=== PATIENT | female | born 2000 ===

== ENCOUNTER 2024-04-29 18:14 | Inpatient (IN) | payer MEDICAID, SELFPAY ==
[2024-04-29] VITALS (40 sets, daily range): BP systolic 102–122; BP diastolic 52–76; PULSE 0–132; TEMP 36.7–36.9
--- NOTE | 2024-04-29 20:04 | W.PM.OBHPL1 ---
Date of service: 04/29/24 Time of Service: 20:04 Assessment and Plan Assessment and plan (1) Post-dates : Status: Acute Assessment and plan: Induction planned - see R/B discussion above. Labs pending - want to confirm no maternal anemia given hx maternal tachy past 6-8 weeks. No known thyroid disease - will add TSH to labs tachy/high baseline with Cat 1 strip. Cooks catherter placed, Bishops score favorable, ctx pattern present. Will augment as appropriate when catheter falls out. OB-HPI Labor/Delivery History of Present Illness Reason for Visit: IOL Chief Complaint: Scheduled Induction of Labor Indication for Induction: Post Date. Comments: 23 yo @ 41 02/24 for scheduled induction due to post dates. Early and reg PN care GBS neg No HTN, GDM, anemia, PN issues TWG ~50# Over past few days - steady FMVT, no ROM, edema, MARCANO or CTX. FHX - straightforward rapid labors Plans pumping/exclusive breast milk Brendan, partner, present and supportive Conversations in office over the past 1-2 weeks re induction indications, options, risks/benefits. Specifically discussed Cooks catheter, miso, pitocin and risks of hyperstim, HR abnormalities, c/section among others. Similar discussion reviewed again with both Brendan and Rachel on admission She had good sleep last noc, ate well today and had usual activity - approp worried re induction. Fetus quite active today, she had coffee earlier - not a daily intake. Last h/h . No HX PPHem or SD - no particular risk factors save TWG 50# for SD History of Present Assessment: History Reviewed & Current Narrative: RH pos, rubella immune, TDaP booster done 02/29/2024 Informed Consent Informed Consent: Augmentation of Labor and Induction of Labor PFSH All Active Problems (Updated 04/29/24 @ 20:49 by Elie Upton) Post-dates (Acute) (Acute) Social History Smoking/Tobacco Use Status: Never Smoking risk assessment performed?: Yes Alcohol Intake: former Drug use: Never Substance use type: does not use Housing: apartment Do you feel safe at home: Yes Do you feel safe in your relationship?: Yes History History 1 Para 0 Hx # Term Pregnancies Multiple births Hx # Pregnancies Ectopic pregnancies AB induced Hx Number of Living Children AB spontaneous Exam Physical Exam Vital signs: Temp Pulse BP 36.9 C 98 H 121/76 04/29/24 19:41 04/29/24 19:41 04/29/24 19:41 Narrative: Bright, alert, comfortable abd - soft, non-tender, FH 38 cm no edema distally CVS - reg, no murmur Lungs - clear BP 121/76 maternal pulse ~100 in office = baseline Constitutional Constitutional: no acute distress Detailed Labor and Delivery Exam Dilation: 1 Effacement (%): 60 station: 0 Position: OT Cervix position: anterior Consistency: soft Curry Score: Cervical Points Exam 0 1 2 3 Dilation Closed 1-2cm 3-4 cm 5-6cm Effacement 0-30% 40-50% 60-70% 80% Consistency Firm Medium Soft Station -3 -2 -1,0 +1,+2 Position Posterior Mid Anterior CURRY Score(Cervical Ripeness Score): 9 Amniotic Membrane Status: Intact Monitor Mode: External Contraction Frequency(min): q 3 Contraction Duration(sec): 45 Contraction Intensity: Mild/Moderate Comments: reg ctx - palpating mild - maternal crampy Fetus A Heart Rate Baseline: 160 Monitor Accelerations: 15 X 15 Monitor Decelerations: Late Variability: Moderate (6-25 BPM) Presentation: Vertex Categories: Category I Est. Weight: 3600 kg Assessment Note: two self limiting decels from baseline 160 to 130's between ctx - overall cat 1 tracing Results Results Group Beta Strep: Negative Blood Type: O+ Rubella Status: Immune Varicella Immunity: Not Tested Risk Assessment Risks Reviewed Risks Reviewed Upon Admission: Yes
[2024-04-29] MEDS: Lactated Ringers 1,000 ML 999 ML IV ×2 (21:02→22:50)
[2024-04-29 21:08] LABS: HCT 35.3 % (36.0-46.0); HGB 11.5 g/dL (11.2-15.7); MCH 27.4 pg (27.0-33.0); MCHC 32.6 % (32.0-36.0); MCV 84 fL (80-95); MPV 11.2 fL (8.0-11.0); Platelet Count 302 10^3/uL (130-400); RDW 13.8 % (11.7-14.6); RDW-SD 42.3 fL; WBC 14.36 10^3/uL (4.4-10.8)
[2024-04-29] MEDS: Ondansetron O.D.T. 4 MG TABEF PO (21:14)
[2024-04-29 21:32] LABS: TSH (W/Ref FT4) 1.04 uIU/mL (0.36-3.74)
--- NOTE | 2024-04-29 22:01 | W.PM.OBNL1 ---
Date of service: 04/29/24 Time of Service: 22:01 Informed Consent Informed Consent: Augmentation of Labor and Induction of Labor Objective Abnormal lab results 04/29/24 Range/Units 20:52 WBC 14.36 H (4.4-10.8) 10^3/uL Hct 35.3 L (36.0-46.0) % MPV 11.2 H (8.0-11.0) fL Temp Pulse BP 36.9 C 89 102/52 L 04/29/24 19:41 04/29/24 21:59 04/29/24 21:00 Laboratory Results WBC 14.36 10^3/uL (4.4-10.8) H 04/29/24 20:52 RBC 4.20 10^6/uL (3.93-5.22) 04/29/24 20:52 Hgb 11.5 g/dL (11.2-15.7) 04/29/24 20:52 Hct 35.3 % (36.0-46.0) L 04/29/24 20:52 MCV 84 fL (80-95) 04/29/24 20:52 MCH 27.4 pg (27.0-33.0) 04/29/24 20:52 MCHC 32.6 % (32.0-36.0) 04/29/24 20:52 RDW 13.8 % (11.7-14.6) 04/29/24 20:52 Plt Count 302 10^3/uL (130-400) 04/29/24 20:52 MPV 11.2 fL (8.0-11.0) H 04/29/24 20:52 TSH 1.04 uIU/mL (0.36-3.74) 04/29/24 20:52 ABO/Rh O Positive 04/29/24 20:52 Antibody Screen NEGATIVE 04/29/24 20:52 Subjective Interval history since last seen: Comfortable in bed, taking sips fluids, IV bolus infused, fetus active. Baseline 155 with isolated decels to 130 - one to 90 - resolved with maternal position change Maternal nausea past 1-2 hrs - Zofran given. No MARCANO, dizzy, vag d/c. O: maternal pulse in 90's BP: 120/70 no edema non-tender uterus - mild/mod ctx q 3-4 min labs: 11.5/35 TSH 1.04 UDS pending CCUA pending A: Maternal and tachy improved with IV fluid. Just now string of decel - recurrent to 90's - while Rachel up to toilet. P: will recheck cvx and seee if position changes resolve/improve decels. S. Genereaux Results Hemoglobin/Hematocrit: Hgb 11.5 g/dL (11.2-15.7) 04/29/24 20:52 Hct 35.3 % (36.0-46.0) L 04/29/24 20:52 Abnormal Lab Findings: Abnormal Labs 04/29/24 20:52 WBC 14.36 H Hct 35.3 L MPV 11.2 H
--- NOTE | 2024-04-29 22:52 | W.PM.OBNL1 ---
Date of service: 04/29/24 Time of Service: 22:52 Informed Consent Informed Consent: Augmentation of Labor and Induction of Labor Objective Abnormal lab results 04/29/24 Range/Units 20:52 WBC 14.36 H (4.4-10.8) 10^3/uL Hct 35.3 L (36.0-46.0) % MPV 11.2 H (8.0-11.0) fL Temp Pulse BP 36.9 C 84 121/58 L 04/29/24 22:35 04/29/24 22:50 04/29/24 22:35 Laboratory Results WBC 14.36 10^3/uL (4.4-10.8) H 04/29/24 20:52 RBC 4.20 10^6/uL (3.93-5.22) 04/29/24 20:52 Hgb 11.5 g/dL (11.2-15.7) 04/29/24 20:52 Hct 35.3 % (36.0-46.0) L 04/29/24 20:52 MCV 84 fL (80-95) 04/29/24 20:52 MCH 27.4 pg (27.0-33.0) 04/29/24 20:52 MCHC 32.6 % (32.0-36.0) 04/29/24 20:52 RDW 13.8 % (11.7-14.6) 04/29/24 20:52 Plt Count 302 10^3/uL (130-400) 04/29/24 20:52 MPV 11.2 fL (8.0-11.0) H 04/29/24 20:52 TSH 1.04 uIU/mL (0.36-3.74) 04/29/24 20:52 ABO/Rh O Positive 04/29/24 20:52 Antibody Screen NEGATIVE 04/29/24 20:52 Subjective Interval history since last seen: Feeling ctx - more intense and fundal mod q 3 - some q 2. cvx - 2 cm/60%/0 station/soft/ant - Cook catheter in place No bloody show, good fmvt maternal po intake ok - no nausea IV fluids running at 125 O: BP 120/70 - was lower earlier, pulse stable ~90 FHT - mod variability, stretch of no decels - variable character - to 120 from 150 A: Maternal and wellbeing Given occas decels and steady ctx - pharmacologic aug not indicated possible to AROM pending progress Position changes seem to be most effective - currently on LLat with peanut. P: expect cont current course Results Hemoglobin/Hematocrit: Hgb 11.5 g/dL (11.2-15.7) 04/29/24 20:52 Hct 35.3 % (36.0-46.0) L 04/29/24 20:52 Abnormal Lab Findings: Abnormal Labs 04/29/24 20:52 WBC 14.36 H Hct 35.3 L MPV 11.2 H
[2024-04-29 23:50] LABS: *AMPHETAMINES SCREEN URINE Negative (Negative); *BARBITURATES SCREEN URINE Negative (Negative); *BENZODIAZEPINES SCREEN URINE Negative (Negative); Cannabinoids THC Negative (Negative); Cocaine Screen,Urine Negative (Negative); METHADONE URINE SCREEN Negative (Negative); OPIATES URINE SCREEN Negative (Negative); Tricyclic Antidepressants Negative (Negative)
--- NOTE | 2024-04-29 23:50 | W.PM.OBNL1 ---
Date of service: 04/29/24 Time of Service: 23:50 Informed Consent Informed Consent: Augmentation of Labor and Induction of Labor Objective Abnormal lab results 04/29/24 Range/Units 20:52 WBC 14.36 H (4.4-10.8) 10^3/uL Hct 35.3 L (36.0-46.0) % MPV 11.2 H (8.0-11.0) fL Temp Pulse BP 36.9 C 77 121/58 L 04/29/24 22:35 04/29/24 23:46 04/29/24 22:35 Laboratory Results WBC 14.36 10^3/uL (4.4-10.8) H 04/29/24 20:52 RBC 4.20 10^6/uL (3.93-5.22) 04/29/24 20:52 Hgb 11.5 g/dL (11.2-15.7) 04/29/24 20:52 Hct 35.3 % (36.0-46.0) L 04/29/24 20:52 MCV 84 fL (80-95) 04/29/24 20:52 MCH 27.4 pg (27.0-33.0) 04/29/24 20:52 MCHC 32.6 % (32.0-36.0) 04/29/24 20:52 RDW 13.8 % (11.7-14.6) 04/29/24 20:52 Plt Count 302 10^3/uL (130-400) 04/29/24 20:52 MPV 11.2 fL (8.0-11.0) H 04/29/24 20:52 TSH 1.04 uIU/mL (0.36-3.74) 04/29/24 20:52 ABO/Rh O Positive 04/29/24 20:52 Antibody Screen NEGATIVE 04/29/24 20:52 Subjective Interval history since last seen: more consistent decels - early appearing - from 160's to 90 - good rebound and mod variability cvx - 2-3 cm/0 station/60%/vtx SROM - clear no bloody show mat BP 120/60 - pulse ~90 Ctx = mod q 3 A: Despite IV fluids, O2, position changes decels persist Nuchal cord possible Given she is far from - will try amnio and scalp clip if little improvement - section may be best course Nicole aware and fully involved with care decisons and planning Dr. Spaulding aware - discussed strip and plans for amnio infusion trial Lola Upton Results Hemoglobin/Hematocrit: Hgb 11.5 g/dL (11.2-15.7) 04/29/24 20:52 Hct 35.3 % (36.0-46.0) L 04/29/24 20:52 Abnormal Lab Findings: Abnormal Labs 04/29/24 20:52 WBC 14.36 H Hct 35.3 L MPV 11.2 H
[2024-04-30] VITALS (28 sets, daily range): BP systolic 108–134; BP diastolic 59–82; PULSE 72–104; RESP 15–24; TEMP 36.6–36.9; TEMPC 35.9; O2SAT 95–97; BMI 39.4
--- NOTE | 2024-04-30 01:18 | W.PM.OBNL1 ---
Date of service: 04/30/24 Time of Service: 01:19 Informed Consent Informed Consent: Augmentation of Labor and Induction of Labor Objective Abnormal lab results 04/29/24 Range/Units 20:52 WBC 14.36 H (4.4-10.8) 10^3/uL Hct 35.3 L (36.0-46.0) % MPV 11.2 H (8.0-11.0) fL Temp Pulse BP 36.9 C 72 122/58 L 04/30/24 00:26 04/30/24 00:26 04/29/24 23:57 Laboratory Results WBC 14.36 10^3/uL (4.4-10.8) H 04/29/24 20:52 RBC 4.20 10^6/uL (3.93-5.22) 04/29/24 20:52 Hgb 11.5 g/dL (11.2-15.7) 04/29/24 20:52 Hct 35.3 % (36.0-46.0) L 04/29/24 20:52 MCV 84 fL (80-95) 04/29/24 20:52 MCH 27.4 pg (27.0-33.0) 04/29/24 20:52 MCHC 32.6 % (32.0-36.0) 04/29/24 20:52 RDW 13.8 % (11.7-14.6) 04/29/24 20:52 Plt Count 302 10^3/uL (130-400) 04/29/24 20:52 MPV 11.2 fL (8.0-11.0) H 04/29/24 20:52 TSH 1.04 uIU/mL (0.36-3.74) 04/29/24 20:52 Urine Opiates Screen Negative (Negative) 04/29/24 22:30 Urine Methadone Screen Negative (Negative) 04/29/24 22:30 Ur Barbiturates Screen Negative (Negative) 04/29/24 22:30 Ur Tricyclics Screen Negative (Negative) 04/29/24 22:30 Ur Amphetamines Screen Negative (Negative) 04/29/24 22:30 U Benzodiazepines Scrn Negative (Negative) 04/29/24 22:30 Urine Cocaine Screen Negative (Negative) 04/29/24 22:30 Ur THC Screen Negative (Negative) 04/29/24 22:30 ABO/Rh O Positive 04/29/24 20:52 Antibody Screen NEGATIVE 04/29/24 20:52 Subjective Interval history since last seen: Despite amnioinfusion, decels persist - appear to be earlies Some light mec. Ctx Q2 FHT - variability mod, at times tachy with consistent decels Cat 2 strip A: Given remote from delivery proceeding to section = best option Nicole fully apart of dahlia making re options of continued labor vs section. I counselled them re anes, surgical procedure and specific risks including bleeding, infection, damage to internal organs. They freely signed consent form. P To OR routine pre-op abx, fluids, bicitra S. Genereaux Results Hemoglobin/Hematocrit: Hgb 11.5 g/dL (11.2-15.7) 04/29/24 20:52 Hct 35.3 % (36.0-46.0) L 04/29/24 20:52 Abnormal Lab Findings: Abnormal Labs 04/29/24 20:52 WBC 14.36 H Hct 35.3 L MPV 11.2 H
--- NOTE | 2024-04-30 01:22 | W.PM.OBNL1 ---
Date of service: 04/30/24 Time of Service: 01:22 Informed Consent Informed Consent: Augmentation of Labor and Induction of Labor Pelvic Exam Dilation: 2 Fetus A Heart Rate Baseline: 155 Variability: Moderate (6-25 BPM) Categories: Category II Accelerations: 15 X 15 Decelerations: Early and Variable Recurrence: Recurrent Assessment and Plan Assessment and plan (1) Category II heart rate tracing during labor and delivery: Status: Acute Assessment and plan: The situation was discussed with Dr. Upton, the patient and myself. She is agreeable to proceed with C section. Consent signed and questions answered. The team was notified. Objective Abnormal lab results 04/29/24 Range/Units 20:52 WBC 14.36 H (4.4-10.8) 10^3/uL Hct 35.3 L (36.0-46.0) % MPV 11.2 H (8.0-11.0) fL Temp Pulse BP 98.5 F 90 125/63 04/30/24 00:26 04/30/24 01:20 04/30/24 01:20 Laboratory Results WBC 14.36 10^3/uL (4.4-10.8) H 04/29/24 20:52 RBC 4.20 10^6/uL (3.93-5.22) 04/29/24 20:52 Hgb 11.5 g/dL (11.2-15.7) 04/29/24 20:52 Hct 35.3 % (36.0-46.0) L 04/29/24 20:52 MCV 84 fL (80-95) 04/29/24 20:52 MCH 27.4 pg (27.0-33.0) 04/29/24 20:52 MCHC 32.6 % (32.0-36.0) 04/29/24 20:52 RDW 13.8 % (11.7-14.6) 04/29/24 20:52 Plt Count 302 10^3/uL (130-400) 04/29/24 20:52 MPV 11.2 fL (8.0-11.0) H 04/29/24 20:52 TSH 1.04 uIU/mL (0.36-3.74) 04/29/24 20:52 Urine Opiates Screen Negative (Negative) 04/29/24 22:30 Urine Methadone Screen Negative (Negative) 04/29/24 22:30 Ur Barbiturates Screen Negative (Negative) 04/29/24 22:30 Ur Tricyclics Screen Negative (Negative) 04/29/24 22:30 Ur Amphetamines Screen Negative (Negative) 04/29/24 22:30 U Benzodiazepines Scrn Negative (Negative) 04/29/24 22:30 Urine Cocaine Screen Negative (Negative) 04/29/24 22:30 Ur THC Screen Negative (Negative) 04/29/24 22:30 ABO/Rh O Positive 04/29/24 20:52 Antibody Screen NEGATIVE 04/29/24 20:52 Vital Signs Reviewed: Yes Subjective Interval history since last seen: Pt was admitted by [facility] for induction of labor at 41.3wks. She had a cooks catheter placed for cervical ripening and began prince mildly after that. The catheter was removed around 23:30 and she started to develop recurrent variable/early decels. She was only 2cm. An amnio infustion was started, IUPC and FSE placed. I was asked to evaluate patient and discuss C Section due to persistent category 2 FHT remote from delivery. Results Hemoglobin/Hematocrit: Hgb 11.5 g/dL (11.2-15.7) 04/29/24 20:52 Hct 35.3 % (36.0-46.0) L 04/29/24 20:52 Abnormal Lab Findings: Abnormal Labs 04/29/24 20:52 WBC 14.36 H Hct 35.3 L MPV 11.2 H
--- NOTE | 2024-04-30 01:26 | ANES.PREOP_ITS ---
General Info Date of Service Date Performed: 04/30/24 Height: 5 ft 9 in Weight: 121.109 kg Body Mass Index (BMI): 39.4 Meds Allergies and Home Medications Home Medication Medication Instructions Recorded Unknown [No Known Home Meds] 04/29/24 Current Visit Medications: Current Medications Generic Name Dose Route Start Last Admin Trade Name Freq PRN Reason Stop Dose Admin Ringer's Solution 1,000 mls @ 200 mls/hr 04/29/24 20:45 04/29/24 22:50 IV 999 mls/hr INFUSION ASH Administration Ringer's Solution 1,000 mls @ 125 mls/hr 04/30/24 06:00 IV INFUSION ASH IV Miscellaneous Supplies 1 each 04/29/24 20:45 Iv Access IV DIRECTED ASH IV Miscellaneous Supplies 1 each 04/29/24 20:45 Iv Access IV DIRECTED ASH Ondansetron HCl 4 mg 04/29/24 20:43 04/29/24 21:14 Ondansetron O.D.T. 4 Mg Tabef PO 4 mg Q8H PRN PRN Administration Sodium Chloride 0 ml 04/29/24 20:37 Normal Saline Flush 10 Ml Syr IVP PRN PRN Sodium Chloride 0 ml 04/30/24 08:30 Normal Saline Flush 10 Ml Syr IVP BID ASH Sodium Chloride 0 ml 04/29/24 20:37 Normal Saline 10 Ml Vial IJ DIRECTED PRN Sodium Chloride 0 ml 04/29/24 20:37 Normal Saline Flush 10 Ml Syr IVP PRN PRN Terbutaline Sulfate 0.25 mg 04/29/24 20:37 Terbutaline 1 Mg/Ml Vial SC PRN PRN Zolpidem Tartrate 10 mg 04/29/24 21:00 Zolpidem 5 Mg Tab PO 04/30/24 06:00 2100 ASH PFSH Active Problems Active Problems: Problem Status Onset Code Post-dates O48.0 Z34.90 Tobacco Smoking/Tobacco Use Status: Never Alcohol Alcohol Intake: former Substance Use Substance use: Never Substance use type: does not use Prental History History 2 1 Para 0 Hx # Term Pregnancies Multiple births Hx # Pregnancies Ectopic pregnancies AB induced Hx Number of Living Children AB spontaneous Vital Signs and Lab Results Vital Signs Most Recent Vital Signs in EMR: Most Recent Vital Signs Temp Pulse BP 36.9 C 90 125/63 04/30/24 00:26 04/30/24 01:20 04/30/24 01:20 Lab Results 04/29/24 20:52 Blood Type / Crossmatch: 2 Antibody Screen NEGATIVE 04/29/24 Complete Blood Count: 2 White Blood Count 14.36 10^3/uL (4.4-10.8) H 04/29/24 20:52 Red Blood Count 4.20 10^6/uL (3.93-5.22) 04/29/24 20:52 Hemoglobin 11.5 g/dL (11.2-15.7) 04/29/24 20:52 Hematocrit 35.3 % (36.0-46.0) L 04/29/24 20:52 Platelet Count 302 10^3/uL (130-400) 04/29/24 20:52 Complete Metabolic Panel: 2 No Data to Display Liver Function Panel: 2 No Data to Display Coagulation Panel: 2 No Data to Display Cardiac Panel: 2 No Data to Display Arterial Blood Gas: 2 No Data to Display Venous Blood Gas: 2 No Data to Display Pancreas Panel: 2 No Data to Display Thyroid Panel: 2 Thyroid Stimulating Hormone (TSH) 1.04 uIU/mL (0.36-3.74) 04/29 20:52 Infectious Disease: 2 No Data to Display Blood Cultures: 2 No Data to Display Toxicology Panel: 2 Urine Amphetamines Screen Negative (Negative) 04/29/24 22:30 Urine Benzodiazepines Screen Negative (Negative) 04/29/24 22:3 0 Urine Barbiturates Screen Negative (Negative) 04/29/24 22:30 Urine Cocaine Screen Negative (Negative) 04/29/24 22:30 Urine Methadone Screen Negative (Negative) 04/29/24 22:30 Urine Opiates Screen Negative (Negative) 04/29/24 22:30 Ur Tricyclic Antidepressants Screen Negative (Negative) 22:30 Ur Tetrahydrocannabinol (THC) Scrn Negative (Negative) 4 22:30 Panel: 2 No Data to Display Anesthesia Assessment and Plan Anesthesia History Personal History: No History of Anesthesia Complications Family History: No Family History of Anesthesia Complications Exercise Tolerance Exercise Tolerance: Metabolic Equivalents>4 Cardiac & Pulmonary Exam Cardiac Exam: Normal S1/S2 Heart Sounds Pulmonary Exam: Clear Bilateral Breath Sounds Implantable Cardiac Device Does patient have a Pacemaker or an ICD?: No Airway Exam Known Difficult Airway: No Mallampati Class: 4 Mouth Opening: Narrow (< 3cm) Thyromental Distance: Less than 3 cm Neck Range of Motion: Full ROM Neck Circumference: Thick Teeth Condition: Normal Dentition ASA Classification ASA Score: ASA 3 Emergency Case?: No NPO Status NPO Status: Full Stomach Status Status: Confirmed Anesthesia Plan Resuscitation Status: Full Code Anesthesia Technique: Spinal Anesthesia Airway Planned: Natural Airway Monitors Used: Standard Monitors Preoperative Comments:: 23 yo preg female for section. nonreasuring tracing. Denies HTN, asthma. scoliosis. plt 302
[2024-04-30] MEDS: Azithromycin 500 MG VIAL (01:37)
[2024-04-30] MEDS: Normal Saline 250 ML (01:37)
[2024-04-30] MEDS: Sodium Citrate 30 ML CUP (01:37)
[2024-04-30] MEDS: ceFAZolin 2 GM/50 ML BAG 100 GM (01:58)
[2024-04-30] MEDS: Lactated Ringers 1,000 ML 30 ML IV (01:58)
[2024-04-30] MEDS: Bupivacaine 0.25% Pres-Free 30 ML VIAL (02:22)
--- NOTE | 2024-04-30 03:31 | W.ANESPOSTOP ---
Postoperative Evaluation Date, Time and Location Date Performed: 04/30/24 Time Performed: 03:31 Patient Location: Obstetrics Vital Signs Most Recent Imported Vital Signs: Most Recent Vital Signs Temp Pulse BP 36.9 C 90 125/63 04/30/24 00:26 04/30/24 01:20 04/30/24 01:20 Most Recent Manually Entered Vital Signs: Adult Blood Pressure: 125/82 Heart Rate: 84 Respirations: 24 Oxygen Saturation (%): 96 Temperature (C): 35.9 C Pain Score (0-10 Scale): 0 Assessment Mental Status: Awake (Alert & Oriented to Patient Baseline) Airway and Respiratory Function: Patent airway with normal (patient baseline) respiratory exam Cardiovascular Function: Hemodynamically Stable Hydration Status: Adequately Hydrated Nausea & Vomiting: No Nausea or Vomiting Pain: Pt. Denies Any Pain (spinal still waning. ) Peripheral Nerve Block: Patient did not receive a nerve block
--- NOTE | 2024-04-30 03:38 | ROE_ITS ---
Date of service: 04/30/24 Time of Service: 14:00 Operative Note Operative Note DATE OF PROCEDURE: 04/30/24 PRE-OP DIAGNOSIS: Category 2 FHT, remote from delivery, meconium stained fluid POST-OP DIAGNOSIS: same PROCEDURE: PLTCS SURGEON: Sabrina Spaulding ASSISTING SURGEON: Melissa Webb Refer to Anesthesia Record ESTIMATED BLOOD LOSS: 800 COMPLICATIONS: None Patient was transported to: floor Patient's condition: stable Indications: Pt underwent induction for postdates at 41.3wks. She had a cooks catheter placed and several hours later developed some intermittent variable decels. The catheter was removed and she experienced rupture of membranes. She continued to have intermittent contractions. The decels became recurrent early/late decels. She underwent an amnio-infusion with no significant improvement in the tracing. She was also noted to have meconium stained fluid at that time so the decision was made to proceed with a CS. Findings: Normal appearing uterus, ovaries, tubes. Normal appearing placenta. Moderate meconium. Male , OP presentation. Procedure Description: After informed consent was signed the patient was taken to the operating room. She was given spinal anesthesia, SCDs were placed on her legs and a shannon catheter was introduced into her bladder. The heart rate was checked and was normal. She underwent abdominal and vaginal prep and was draped in the dorsal supine position with a leftward tilt. The patient was tested and spinal anesthesia was found to be adequate. A time out was performed. The skin was injected with marcaine along the length of the planned incision. A skin incision was made with the scalpel and carried down to the underlying layer of fascia with blunt dissection. The fascia was incised on either side of the midline and the fascial incision extended laterally with a combination of sharp and blunt dissection. The inferior edge of the fascia was grasped with anthony clamps and tented up and dissected down with a combination of sharp and blunt dissection. Then the superior edge of the fascial incision was grasped with anthony clamps and tented up and dissected down with a combination of sharp and blunt dissection. The rectus muscles were in the midline and the peritoneum was entered bluntly. The peritoneal incision was extended laterally with blunt dissection. The bladder blade was inserted. A transverse incision was made in the lower uterine segment with the scalpel. The incision was extended superiorly and inferiorly with blunt pressure. The infants head delivered with fundal pressure followed by the shoulders and the rest of the body. The cord was milked toward the baby and after 1min it was clamped x2 and cut. The baby was handed to the physician. Cord blood was collected. The placenta delivered with fundal massage and gentle cord traction and appeared to be intact. The uterus was exteriorized and cleared of clots and debris. The uterine incision was closed with 0-vicryl in a running locked fashion with a second layer of suture imbricating the first. One figure of eight suture was placed in the center of the incision to create good hemostasis. The uterus was placed back into the abdominal cavity. Clots were cleared from the peritoneal cavity with lap sponges. The incision was inspected once again and good hemostasis was noted. There was good hemostasis of the rectus muscles. The fascia was closed with 0- vicryl in a running unlocked fashion. The subcuticular layer was irrigated and closed with interrupted sutures of 3-0 vicryl. The skin was closed with 4-0 vicryl in a running subcuticular fashion. The incision was cleaned. Mastisol and steristrips were placed. A Mepilex dressing was placed. The fundus was palpated to be firm. The patient was moved to the stretcher and taken to the recovery room in stable condition.
[2024-04-30] MEDS: Naloxone 0.4 MG/ML VIAL IVP (04:06)
[2024-04-30] MEDS: Docusate Sodium 100 MG CAP PO (05:10)
[2024-04-30] MEDS: Acetaminophen 325 MG TAB 650 MG PO (05:10)
[2024-04-30] MEDS: Ondansetron 4 MG/2 ML VIAL (08:10)
[2024-04-30] MEDS: Ketorolac 30 MG/ML VIAL IVP ×3 (08:15→20:15)
[2024-04-30] MEDS: Normal Saline Flush 10 ML SYR IVP ×2 (08:22→20:15)
[2024-04-30] MEDS: Lactated Ringers 1,000 ML 120 ML IV (08:22)
[2024-04-30] MEDS: Normal Saline 10 ML VIAL IJ (13:50)
--- NOTE | 2024-04-30 17:22 | W.PM.OBPNV1 ---
Date of service: 04/30/24 Time of Service: 17:22 Assessment and Plan Assessment and plan (1) Status post primary low transverse section: Status: Acute Assessment and plan: Postop day 0. Saturated testing. Replaced. Nausea and vomiting improved. Continue to monitor. Labs in the morning. Questions answered. Subjective Subjective Interval history: Patient seen and examined this afternoon. Vital signs are stable. Urine output is appropriate. Pain is well-controlled. Incision dressing saturated. Mepilex replaced. No discrete seroma, hematoma, or drainage from incision currently. Will continue to monitor. Exam Physical Exam Vital signs: Temp Pulse Resp BP Pulse Ox 98.1 F 92 H 16 118/78 95 04/30/24 12:00 04/30/24 12:00 04/30/24 15:00 04/30/24 12:00 04/30/24 12:00 Results Hemoglobin/Hematocrit: Hgb 11.5 g/dL (11.2-15.7) 04/29/24 20:52 Hct 35.3 % (36.0-46.0) L 04/29/24 20:52 Abnormal Lab Findings: Abnormal Labs 04/29/24 20:52 WBC 14.36 H Hct 35.3 L MPV 11.2 H
[2024-05-01 02:00] VITALS: BP 108/66; PULSE 96; RESP 18; TEMP 35.7
[2024-05-01] MEDS: Ketorolac 30 MG/ML VIAL IVP (02:48)
[2024-05-01] MEDS: Normal Saline 10 ML VIAL IJ (02:49)
[2024-05-01 07:39] VITALS: BP 98/61; PULSE 81; RESP 20; TEMP 36.5; O2SAT 96
--- NOTE | 2024-05-01 08:31 | W.PM.OBPNV1 ---
Date of service: 05/01/24 Time of Service: 08:33 Assessment and Plan Assessment and plan (1) Status post primary low transverse section: Status: Acute Assessment and plan: POD#1 s/p PCS for Cat 2 FHT remote from delivery, doing well. No significant concerns. Routine care. Likely D/C home tomorrow. Subjective Subjective Interval history: Pt is feeling well today. Nausea has resolved and she is tolerating PO intake. Minimal lochia. Pain well controlled on PO meds. OOB without difficulty. Baby is breast feeding without difficulty. Exam Physical Exam Vital signs: Temp Pulse Resp BP Pulse Ox 97.7 F 81 20 98/61 L 96 05/01/24 07:39 05/01/24 07:39 05/01/24 07:39 05/01/24 07:39 05/01/24 07:39 Vital Signs Reviewed: Yes Constitutional Constitutional: no acute distress and cooperative Detailed HEENT Exam Head: Present normocephalic and atraumatic Respiratory Exam Respiratory Exam: Normal Abdominal Exam Abdomen: Tender (mildly) Comments: Dressing with an area of old blood in the center. No new blood. Fundal Exam Fundus: Below Umbilicus and Firm Extremities Exam Extremity Exam: Edema (trace) Comment: SCDs in place. Detailed Neurological Exam Neurological: Present alert, oriented X3 and CN II-XII intact Results Hemoglobin/Hematocrit: Hgb 11.5 g/dL (11.2-15.7) 04/29/24 20:52 Hct 35.3 % (36.0-46.0) L 04/29/24 20:52 Abnormal Lab Findings: Abnormal Labs 04/29/24 20:52 WBC 14.36 H Hct 35.3 L MPV 11.2 H
[2024-05-01] MEDS: Ibuprofen 600 MG TAB PO ×2 (09:32→17:37)
[2024-05-01 12:15] VITALS: BP 109/54; PULSE 91; RESP 17; TEMP 35.8; O2SAT 95
[2024-05-01] MEDS: Acetaminophen 325 MG TAB 650 MG PO ×2 (12:18→17:37)
[2024-05-01] MEDS: oxyCODONE 5 MG TAB PO (15:04)
[2024-05-01 15:14] VITALS: BP 113/65; PULSE 93; RESP 18; TEMP 36.8; O2SAT 97
[2024-05-01 20:05] VITALS: BP 110/55; PULSE 94; RESP 18; TEMP 36.8
[2024-05-02 04:23] VITALS: BP 104/64; PULSE 80; RESP 18
[2024-05-02 08:00] VITALS: BP 103/90; PULSE 80; RESP 17; TEMP 36.9; O2SAT 96
[2024-05-02] MEDS: Ibuprofen 600 MG TAB PO ×2 (08:46→14:04)
[2024-05-02] MEDS: Docusate Sodium 100 MG CAP PO (08:47)
[2024-05-02] MEDS: oxyCODONE 5 MG TAB PO ×2 (08:47→14:04)
--- NOTE | 2024-05-02 11:05 | OBPPV_ITS ---
Date of service: 05/02/24 Time of Service: 10:30 Assessment and Plan Assessment and plan (1) Status post primary low transverse section: Status: Acute Assessment and plan: Pt is doing well POD#2 s/p PCS. She did continue to have some blood soaking her dressing since yesterday am. Therefore it was removed and explored more closely today with only a tiny bit of blood elicited. Pressure dressing applied. She has a f/u visit for her son at [facility] tomorrow and will keep an eye on the dressing and have it inspected tomorrow if there are any concerns. She also sees them on Mon and will return here for a post-op visit next monday. We reviewed all the reasons to call. Exam Physical Exam Vital signs: Temp Pulse Resp BP Pulse Ox 98.3 F 80 18 104/64 97 05/01/24 20:05 05/02/24 04:23 05/02/24 04:23 05/02/24 04:23 05/01/24 15:14 Vital Signs Reviewed: Yes Constitutional Constitutional: no acute distress and cooperative Detailed HEENT Exam Head: Present normocephalic and atraumatic Respiratory Exam Respiratory Exam: Normal Abdominal Exam Abdomen: Tender (mildly) Comments: Dressing was mostly soaked with dark blood. The dressing and the steristrips were removed with no obvious bleeding through the incision. It appeared healed at the skin layer initially. Eventually there was a very small amount of blood elicited through the center left of the incision. No significant palpable pocket of blood noted. Only 1 tiny drop of blood was elicited with firm palpation of that particular area of the incision. Pt had mild tenderness, slightly greater around the right end of the incision but still not very significant. No firmness palpated. Steristrips and new mepilex dressing applied followed by 2 abd pads attached firmly with paper tape to create a pressure dressing. Fundal Exam Fundus: Below Umbilicus and Firm Extremities Exam Extremity Exam: Edema (trace) Detailed Neurological Exam Neurological: Present alert, oriented X3 and CN II-XII intact Results Hemoglobin/Hematocrit: Hgb 11.5 g/dL (11.2-15.7) 04/29/24 20:52 Hct 35.3 % (36.0-46.0) L 04/29/24 20:52 Abnormal Lab Findings: Abnormal Labs 04/29/24 20:52 WBC 14.36 H Hct 35.3 L MPV 11.2 H
--- NOTE | 2024-05-02 11:23 | DSE_ITS ---
Date of service: 05/02/24 Time of Service: 10:30 DS: Diagnosis Discharge Diagnosis (1) Status post primary low transverse section: Status: Acute Discharge Plan Disposition Condition: Stable Discharge Details Reason For Visit: IOL Admit Date/Time: 04/29/24 18:16 Admit Provider: Elie Upton Attending Provider: Elie Upton Primary Care Provider: Unknown,Unknown Hospital Course Hospital Course: Admitted for post-dates induction of labor but developed a category 2 FHT remote from delivery so she underwent an uncomplicated PCS with routine post-op care with d/c home on POD#2. Home Meds and New Rx's Prescriptions: New ibuprofen 600 mg Tablet 600 mg PO Q6H PRN PRNQty: 60 0RF Discharge Instructions Activity:: No lifting >20lbs Remove Dressings/Wound Care:: Do Not Remove Shower/Bathe:: 24 hours Diet:: As Tolerated OB:DS Summary Summary Episiotomy Description: None Laceration Description: None Laceration Extension: N/A Contraception Discussed Contraception Discussed: Yes (uncertain plan - will discuss further at 6wk visit. Plans abstinence until), [place] Infant Gender-Baby A: Male weight: 8 lb 4.983 oz Status at Discharge Functional status at discharge: independent ambulation Overall status at discharge: patient is back to baseline Mental Status: mental status grossly normal Speech and Movement: speech and movement normal Mood: congruent mood Affect: normal affect Quality:SDOH Health Related Social Needs: No Data to Display Exam Physical Exam Vital signs: Temp Pulse Resp BP Pulse Ox 98.5 F 80 17 103/90 96 05/02/24 08:00 05/02/24 08:00 05/02/24 08:00 05/02/24 08:00 05/02/24 08:00 PFSH All Active Problems (Updated 04/30/24 @ 17:23 by Judith Fenton DO) Status post primary low transverse section (Acute) Medical History (Updated 05/01/24 @ 08:36 by Sabrina Spaulding MD) Post-dates Category II heart rate tracing during labor and delivery Social History Smoking/Tobacco Use Status: Never Smoking risk assessment performed?: Yes Alcohol Intake: former Drug use: Never Substance use type: does not use Housing: apartment Do you feel safe at home: Yes Do you feel safe in your relationship?: Yes History History 1 Para 0 Hx # Term Pregnancies Multiple births Hx # Pregnancies Ectopic pregnancies AB induced Hx Number of Living Children AB spontaneous DS: Data Vitals/I&O Vitals and I&O: Vital Signs Temperature 98.5 F 05/02/24 08:00 Temperature 98.1 F 04/29/24 18:37 Temperature Source Oral 05/02/24 08:00 Pulse 80 05/02/24 08:00 Pulse 87 04/29/24 18:37 Pulse Rhythm Regular 05/01/24 20:05 Respiratory Rate 17 05/02/24 08:00 Respiratory Depth Normal 04/29/24 19:00 Blood Pressure 103/90 05/02/24 08:00 Blood Pressure 116/73 04/29/24 18:37 Blood Pressure Mean 94 05/02/24 08:00 Pulse Oximetry 96 05/02/24 08:00 Pain Level 1 05/01/24 07:39 Intake & Output 05/01/24 05/01/24 05/02/24 11:59 23:59 11:59 Intake Total 400 / 400 Output Total 1550 / 2250 700 / 2250 Balance -1150 / -1850 -700 / -1850 Intake: IV 400 / 400 Output: Urine 1550 / 2250 700 / 2250 Other: Urine Color Pale Pale Straw
== END 2024-05-02 14:46 | disposition home or self-care (01) | DRG 788 ==
PROVIDERS: Obstetrics & Gynecology; Admitting Provider Family Medicine; Visit Provider Family Medicine
PROC: 10D00Z1 Extraction of Products of Conception, Low, Open Approach (ICD-10-PCS; CPT 59514; principal; 2024-04-30 01:55)
DX: O48.0 Post-term pregnancy (principal); O76 Abnormality in fetal heart rate and rhythm complicating labor and delivery; Z37.0 Single live birth; Z3A.41 41 weeks gestation of pregnancy; O77.0 Labor and delivery complicated by meconium in amniotic fluid
CPT/HCPCS: 59200; 59514; 00123; 80307; 85027; 86850; 86900; 86901; 84443; J0131; J0456; J0665; J0690; J1100; J1885; J2274; J2310; J2371; J2405; J3010